=== PATIENT | female | born 1950 | race Two or more races ===

== ENCOUNTER 2022-03-26 16:11 | Inpatient (IN) | payer OTHER ==
[~2022-03-26] VITALS: Ht 167.6 cm; Wt 59.0 kg
[2022-03-26] MEDS ORDERED: cefTRIAXone 1GM/50ML D5W 50 ML IV ONE (16:45)
[2022-03-26] MEDS ORDERED: SODIUM CHLORIDE 0.9% 1,000 ML IV ONE ×3 (16:45→19:45)
[2022-03-26] MEDS ORDERED: AZITHROMYCIN 500MG/ 250ML 250 ML IV ONE (16:45)
[2022-03-26 17:26] LABS: Hematocrit 32.4 % (36.0-46.0); Mean Corpuscular Hemoglobin 30.3 pg (28.0-32.0); Mean Corpuscular Hgb Conc. 34.1 g/dL (32.0-36.0); Mean Corpuscular Volume 88.9 fL (80.0-100.0); Red Blood Cells 3.64 10^6/uL (4.0-5.20); Red Cell Distribution Width 14.1 % (11.8-14.3); White Blood Cell 10.3 10^3/uL (4.4-10.8)
[2022-03-26 17:29] LABS: Basophils % (manual) 0 (0.0-2.0); Blast Cells 0; Eosinophils % (manual) 0 (0-7); Myelocytes % 0; Promyelocytes % 0; Reactive Lymphocytes 0
[2022-03-26 17:30] LABS: Albumin 2.1 g/dL (3.4-5.0); Calcium 7.7 mg/dL (8.5-10.1); INR 1.08 (0.9-1.15); Partial Thromboplastin Time 24.8 sec (24.6-33.4)
[2022-03-26] MEDS ORDERED: NOREPINEPHRINE 8 MG/250ML KIT 250 ML IV ONE (17:31)
[2022-03-26 17:36] LABS: BUN/Creatinine Ratio 29.9; Bilirubin, Total 5.9 mg/dL (0.2-1.0); Total Protein 4.9 g/dL (6.4-8.2)
[2022-03-26 17:37] LABS: Potassium 2.5 mmol/L (3.5-5.1)
[2022-03-26] MEDS: NOREPINEPHRINE 8 MG/250ML KIT 250 ML IV SCH (17:52)
[2022-03-26] MEDS: POTASSIUM CHL 20MEQ/100ML 100 ML IV SCH ×2 (18:28→21:22)
[2022-03-26 19:29] LABS: Band Neutrophils % (manual) 12; Lymphocytes % (manual) 6 (10.0-50.0); Metamyelocytes % 1; Monocytes % (manual) 4 (0-12)
[2022-03-26] MEDS ORDERED: NITROGLYCERIN 0.4 MG SL TAB SL PRN (19:30)
[2022-03-26] MEDS ORDERED: MORPHINE SULFATE INJ 2 MG/ml SYRG IV PRN (19:30)
[2022-03-26] MEDS ORDERED: POTASSIUM CHL 20 Meq TABLET PO ONE (20:00)
[2022-03-26] MEDS: SODIUM CHLORIDE 0.9% 1,000 ML IV SCH (21:49)
[2022-03-26 22:16] LABS: Urine Bacteria MANY /hpf (None Seen); Urine Blood 3+ /uL (Negative); Urine Budding Yeast FEW /hpf (None Seen); Urine Specific Gravity 1.017 (1.001-1.035); Urine WBC 316 /hpf (0 - 5); Urine WBC Clumps PRESENT /hpf (None Seen)
[2022-03-26 22:38] LABS: Cholesterol 155 mg/dL (< 200); HDL Cholesterol 10 mg/dL (40-59); LDL Cholesterol 116 mg/dL (< 100); Triglycerides 195 mg/dL (< 150)
[2022-03-27 01:45] LABS: BUN/Creatinine Ratio 23.4; Calcium 7.5 mg/dL (8.5-10.1); Potassium 3.8 mmol/L (3.5-5.1)
[2022-03-27 03:42] LABS: Basophils # (auto) 0 10 ^3/uL (0-0.2); Basophils % (auto) 0.3 % (0.0-2.0); Eosinophils # (auto) 0 10 ^3/uL (0-0.8); Eosinophils % (auto) 0.1 % (0.0-7.0); Lymphocytes # (auto) 1.3 10 ^3/uL (0.4-5.4); Neutrophils # (auto) 8.6 10 ^3/uL (1.6-8.6); White Blood Cell 10.5 10^3/uL (4.4-10.8)
[2022-03-27 03:45] LABS: Hemoglobin 10.4 g/dL (12.2-16.2); Lymphocytes % (auto) 12.5 % (10.0-50.0); Mean Corpuscular Hgb Conc. 34.5 g/dL (32.0-36.0); Monocytes # (auto) 0.6 10 ^3/uL (0-1.3); Monocytes % (auto) 5.9 % (0.0-12.0); Neutrophils % (auto) 81.2 % (37.0-80.0); Red Blood Cells 3.33 10^6/uL (4.0-5.20); Red Cell Distribution Width 14.3 % (11.8-14.3)
[2022-03-27 04:13] LABS: Albumin 1.9 g/dL (3.4-5.0); Calcium 7.3 mg/dL (8.5-10.1); Potassium 3.9 mmol/L (3.5-5.1)
[2022-03-27 04:17] LABS: BUN/Creatinine Ratio 27.3; Bilirubin, Total 5.4 mg/dL (0.2-1.0); Total Protein 5.2 g/dL (6.4-8.2)
[2022-03-27] MEDS ORDERED: cefTRIAXone 1GM/50ML D5W 50 ML IV SCH (09:00)
[2022-03-27] MEDS: SODIUM CHLORIDE 0.9% 1,000 ML IV SCH ×2 (09:05→15:39)
[2022-03-27] MEDS ORDERED: AZITHROMYCIN 500MG/ 250ML 250 ML IV SCH (10:00)
[2022-03-27] MEDS ORDERED: ENOXAPARIN SOD 40 MG/0.4 ML SYRINGE SC SCH (10:00)
[2022-03-27] MEDS ORDERED: IBUPROFEN 600 MG TAB PO ONE (10:45)
[2022-03-27] MEDS ORDERED: IOHEXOL 300 MG/ML 100ML BOTTLE IJ ONE (12:08)
[2022-03-27 14:06] LABS: BUN/Creatinine Ratio 21.2; Calcium 7.3 mg/dL (8.5-10.1)
[2022-03-27] MEDS: MEROPENEM 1GM IVPB 100 ML IV SCH ×2 (14:27→21:53)
[2022-03-27 19:01] LABS: BUN/Creatinine Ratio 16.5; Calcium 7.8 mg/dL (8.5-10.1); Potassium 3.5 mmol/L (3.5-5.1)
[2022-03-27 22:57] VITALS: BP 136/63
[2022-03-27 23:00] VITALS: BP 121/61
[2022-03-27 23:15] VITALS: BP 131/57
[2022-03-27 23:30] VITALS: BP 111/52
[2022-03-27 23:45] VITALS: BP 104/62
[2022-03-28] VITALS (81 sets, daily range): BP systolic 81–128; BP diastolic 37–64
[2022-03-28] MEDS: NOREPINEPHRINE 8 MG/250ML KIT 250 ML IV SCH (02:09)
[2022-03-28] MEDS: SODIUM CHLORIDE 0.9% 1,000 ML IV SCH ×3 (02:09→21:30)
[2022-03-28 05:02] LABS: Alanine Aminotransferase 161 U/L (13-56); Albumin 1.8 g/dL (3.4-5.0); Anion Gap 9 (5-15); Aspartate Aminotransferase 212 U/L (15-37); BUN/Creatinine Ratio 13.4; Blood Urea Nitrogen 9 mg/dL (7-18); Calcium 7.7 mg/dL (8.5-10.1); Carbon Dioxide 22 mmol/L (21-32); Chloride 107 mmol/L (98-107); GFR African American 112 mL/min; GFR Non-African American 92 mL/min; Glucose 112 mg/dL (74-106); Potassium 3.2 mmol/L (3.5-5.1); Sodium 138 mmol/L (136-145)
[2022-03-28 05:04] LABS: Alkaline Phosphatase 263 U/L (45-117); Bilirubin, Total 5.9 mg/dL (0.2-1.0); Total Protein 5.5 g/dL (6.4-8.2)
[2022-03-28 05:05] LABS: Hematocrit 34.7 % (36.0-46.0); Hemoglobin 11.5 g/dL (12.2-16.2); Mean Corpuscular Volume 90.8 fL (80.0-100.0); Red Blood Cells 3.82 10^6/uL (4.0-5.20); Red Cell Distribution Width 14.8 % (11.8-14.3); White Blood Cell 16.7 10^3/uL (4.4-10.8)
[2022-03-28 05:35] LABS: Basophils % (manual) 0 (0.0-2.0); Metamyelocytes % 0; Myelocytes % 0; Promyelocytes % 0; Reactive Lymphocytes 0
[2022-03-28] MEDS ORDERED: LEVOTHYROXINE SODIUM 25 MCG TAB PO SCH (07:00)
[2022-03-28] MEDS ORDERED: LEVOTHYROXINE SODIUM 112 MCG TAB PO SCH (07:00)
[2022-03-28] MEDS: MEROPENEM 1GM IVPB 100 ML IV SCH ×3 (07:09→22:00)
[2022-03-28] MEDS ORDERED: POTASSIUM CHL 20 Meq TABLET PO ONE (08:00)
[2022-03-28 08:29] LABS: Band Neutrophils % (manual) 6; Blast Cells 1; Eosinophils % (manual) 1 (0-7); Lymphocytes % (manual) 7 (10.0-50.0); Monocytes % (manual) 2 (0-12)
[2022-03-28] MEDS ORDERED: PANTOPRAZOLE 40 MG TAB PO SCH (10:00)
[2022-03-28] MEDS ORDERED: ENOXAPARIN SOD 30 MG/0.3 ML SYRINGE SC SCH (10:00)
[2022-03-28 11:30] LABS: Hepatitis B Surface Antibody Negative (Negative)
[2022-03-28 12:00] LABS: Hepatitis A Total Antibody Negative (Negative)
[2022-03-28 13:28] LABS: Hepatitis A Ab IgM Negative; Hepatitis B Core IgM Negative; Hepatitis C Antibody Negative (Negative)
[2022-03-28 13:31] LABS: Hepatitis C Antibody Negative (Negative)
[2022-03-29] VITALS (11 sets, daily range): BP systolic 93–120; BP diastolic 39–64
== END 2022-03-29 03:55 | DRG 919 ==
LOC: EDBD 16:11 → ER 16:11 → TELE 19:40 → ICU CENTRL 03-27 22:16
PROVIDERS: ADMIT Registered Nurse; ATTEND Internal Medicine
DX: T85.79XA Infection and inflammatory reaction due to other internal prosthetic devices, implants and grafts, initial encounter (principal); A41.9 Sepsis, unspecified organism; G93.41 Metabolic encephalopathy; E43 Unspecified severe protein-calorie malnutrition; I81 Portal vein thrombosis; R65.21 Severe sepsis with septic shock; E87.1 Hypo-osmolality and hyponatremia; J98.11 Atelectasis; N17.9 Acute kidney failure, unspecified; N39.0 Urinary tract infection, site not specified; J90 Pleural effusion, not elsewhere classified; R18.8 Other ascites; D69.6 Thrombocytopenia, unspecified; E03.9 Hypothyroidism, unspecified; E78.5 Hyperlipidemia, unspecified; E86.0 Dehydration; E87.5 Hyperkalemia; E87.6 Hypokalemia; N18.2 Chronic kidney disease, stage 2 (mild); R19.7 Diarrhea, unspecified; Y83.8 Other surgical procedures as the cause of abnormal reaction of the patient, or of later complication, without mention of misadventure at the time of the procedure; R74.8 Abnormal levels of other serum enzymes; R79.89 Other specified abnormal findings of blood chemistry; I25.10 Atherosclerotic heart disease of native coronary artery without angina pectoris; Z83.3 Family history of diabetes mellitus; Z90.711 Acquired absence of uterus with remaining cervical stump; Z95.5 Presence of coronary angioplasty implant and graft; Z80.3 Family history of malignant neoplasm of breast; Y92.89 Other specified places as the place of occurrence of the external cause; Z68.21 Body mass index [BMI] 21.0-21.9, adult
CPT/HCPCS: 36415; 70450; 71045; 74177; 76705; 80048; 80053; 80061; 80074; 81001; 82728; 83036; 83605; 83735; 83880; 84484; 85007; 85025; 85027; 85610; 85730; 86038; 86704; 86706; 86708; 86803; 87040; 87077; 87081; 87086; 87186; 87340; 93005; 93306; 95819; 96361; 96365; 96366; 96367; 96368; 99291; G0378; J0696; J2185; J3480

== ENCOUNTER 2023-02-04 07:11 | Emergency (ER) | payer OTHER ==
[~2023-02-04] VITALS: Ht 152.4 cm; Wt 55.0 kg
[2023-02-04] MEDS ORDERED: SODIUM CHLORIDE 0.9% 1,000 ML IV ONE (07:30)
[2023-02-04 07:39] LABS: Basophils # (auto) 0 10 ^3/uL (0-0.2); Basophils % (auto) 0.2 % (0.0-2.0); Eosinophils # (auto) 0 10 ^3/uL (0-0.8); Eosinophils % (auto) 0.3 % (0.0-7.0); Hematocrit 27.9 % (36.0-46.0); Hemoglobin 8.8 g/dL (12.2-16.2); Lymphocytes # (auto) 0.9 10 ^3/uL (0.4-5.4); Lymphocytes % (auto) 15.1 % (10.0-50.0); Mean Corpuscular Hemoglobin 27.8 pg (28.0-32.0); Mean Corpuscular Hgb Conc. 31.4 g/dL (32.0-36.0); Mean Corpuscular Volume 88.3 fL (80.0-100.0); Monocytes # (auto) 0.4 10 ^3/uL (0-1.3); Neutrophils # (auto) 4.8 10 ^3/uL (1.6-8.6); Neutrophils % (auto) 77.4 % (37.0-80.0); Nucleated Red Blood Cells % 0.1 %; Red Blood Cells 3.16 10^6/uL (4.0-5.20); Red Cell Distribution Width 17.2 % (11.8-14.3); White Blood Cell 6.2 10^3/uL (4.4-10.8)
[2023-02-04 08:02] LABS: BUN/Creatinine Ratio 20.8 (10.0-20.0); Calcium 7.7 mg/dL (8.5-10.1)
[2023-02-04 08:04] LABS: Bilirubin, Total 0.9 mg/dL (0.2-1.0); Total Protein 5.8 g/dL (6.4-8.2)
[2023-02-04 08:07] LABS: Potassium 3.5 mmol/L (3.5-5.1)
[2023-02-04] MEDS ORDERED: ONDANSETRON HCL 4 MG/2 ML VIAL IV ONE (10:00)
[2023-02-04 10:35] LABS: Urine Bacteria FEW /hpf (None Seen); Urine Blood Negative /uL (Negative); Urine Mucus FEW (None Seen); Urine Specific Gravity 1.014 (1.001-1.035); Urine WBC 163 /hpf (0 - 5)
[2023-02-04 14:00] VITALS: BP 102/62
== END 2023-02-04 14:16 | disposition home or self-care (01) ==
LOC: EDBD 07:11 → ER 07:11
DX: K74.60 Unspecified cirrhosis of liver (principal)
CPT/HCPCS: 36415; 49083; 71045; 74176; 76942; 80053; 81001; 83690; 84484; 85025; 93005; 96361; 96374; 99285; C1729; J2405; J7030